=== PATIENT | male | born 1995 | race Caucasian/White ===

== ENCOUNTER 2023-11-21 13:44 | Emergency (ER) | payer SELFPAY ==
[~2023-11-21] VITALS: Ht 167.6 cm; Wt 75.0 kg
[2023-11-21 13:47] VITALS: O2SAT 97
[2023-11-21] MEDS: NEOMYCIN/BACITRACIN/POLYMYXIN OINT 14GM TOP SCH (16:33)
[2023-11-21 18:30] VITALS: BP 110/65; PULSE 71; RESP 16; TEMP 36.61404; O2SAT 99
== END 2023-11-21 18:59 | disposition home or self-care (01) ==
LOC: ER 13:44
DX: S02.2XXA Fracture of nasal bones, initial encounter for closed fracture (principal); Y04.0XXA Assault by unarmed brawl or fight, initial encounter; Y93.89 Activity, other specified; Y92.89 Other specified places as the place of occurrence of the external cause; Y99.8 Other external cause status
CPT/HCPCS: 70486; 12011; 99284; Z7610

== ENCOUNTER 2023-11-27 09:37 | Emergency (ER) | payer SELFPAY ==
[~2023-11-27] VITALS: Ht 160 cm; Wt 50.0 kg
[2023-11-27 09:44] VITALS: O2SAT 99
[2023-11-27 10:51] VITALS: BP 112/78; PULSE 78; RESP 18; TEMP 37.05852; O2SAT 98
== END 2023-11-27 10:52 | disposition home or self-care (01) ==
LOC: ER 09:37
DX: S01.21XD Laceration without foreign body of nose, subsequent encounter (principal); X58.XXXD Exposure to other specified factors, subsequent encounter
CPT/HCPCS: 99281